=== PATIENT | female | born 1970 | race Caucasian/White ===

== ENCOUNTER 2016-05-16 17:00 | Emergency (ER) | payer OTHER ==
[~2016-05-16] VITALS: Ht 160 cm; Wt 65.8 kg
[~2016-05-16 17:00] MED LIST: ALBUTEROL2.5 MG/3 M INH/SOL; AUGMENTIN 875875 MG PO; AZITHROMYCIN250 M1 PO; FLOVENT1 PU1 INH; MEDROL4 M2 PO; OXYCODONE5 MG PO; PREDNISONE10 MG PO; PROAIR HFA0.09 MG/Ac INH; ROBITUSSIN W/CO10 ML PO; TESSALON PERLE100 M1 PO; VENTOLIN HFA18 GM INH; ZITHROMAX Z-PA250 M1 PO
--- NOTE | 2016-05-16 18:09 | ED INFLUENZA/URI COMPLAINT ---
History of Present Illness General Chief Complaint: General Adult Stated Complaint: FEVER,COUGH,BODY ACHES Source: patient Exam Limitations: no limitations Vital Signs & Intake/Output Vital Signs & Intake/Output Vital Signs Date Time Temp Pulse Resp B/P Pulse O2 O2 Flow FiO2 Ox Delivery Rate 05/16 1854 100.7 05/169 100.7 05/16 1743 100.7 88 20 144/86 100 Room Air Allergies Coded Allergies: MDX - Chocolate (Chocolate) (Mild, CONGESTION 08/24/13) MDX - Peanuts (Peanuts) (Mild, CONGESTION 08/24/13) MDX - Aspirin (NOSE BLEEDS 06/14/14) Reconcile Medications Albuterol Sulfate (Proair Hfa) 0.09 MG/Actuation BREE 2 PUFF INH Q4HR PRN WHEEZING Albuterol Sulfate 2.5 MG/3 ML VIAL.NEB 1 Vial INH/EVER Q4P PRN shortness of breath/wheezing Albuterol Sulfate (Ventolin Hfa) 18 GM HFA.AER.AD 2 PUF INH Q4-6 PRN PRN WHEEZING/SHORTNESS OF BREATH Azithromycin (Zithromax Z-Torres) 250 MG CAP 1 DP PO AD bronchitis 2 the first day followed by 1 for days 2-5 Azithromycin 250 MG TABLET 1 DP PO AD infection 2 the first day followed by 1 for days 2-5 Benzonatate (Tessalon Perle) 100 MG CAPSULE 1 CAP PO TID PRN COUGH Benzonatate (Tessalon Perle) 100 MG CAPSULE 1 CAP PO TID PRN COUGH Methylprednisolone. (Medrol) 4 MG TAB.DS.PK 1 DP PO AD breathing/sinuses Mometasone Furoate (Nasonex) 50 MCG SPRAY.PUMP 2 SPRAY NASB DAILY CONGESTION Oseltamivir Phosphate (Tamiflu) 75 MG CAPSULE 1 CAP PO BID INFLUENZA Robitussin AC (Guaifenesin-Codeine Syrup) 10 ML UDC 10 ML PO Q6 PRN cough Robitussin AC (Guaifenesin-Codeine Syrup) 200 MG-20 MG/10 ML LIQUID 10 ML PO TID PRN COUGH Triage Note: C/O BODY ACHES, HEADACHE. FEVER AND COUGH SINCE YESTERDAY. DENIES . Triage Nurses Notes Reviewed? yes Onset: Abrupt Duration: constant Timing: recent history Severity: severe Severity Numbers: 8 No Modifying Factors: none Modifying Factors: Improves With: rest. HPI: Patient is a 45-year-old female with past medical history of asthma who presents emergency with a 2 day history of acute onset of fever or shaky chills body aches back pain headache nasal congestion sinus pressure head congestion and productive white cough. Positive sick contacts at home. Denies any chest pain arm pain jaw pain leg swelling or rash. Denies any sore throat. (BOBBY WALTER) Past History Travel History Traveled to [place] past 21 day No Medical History Any Pertinent Medical History? see below for history Neurological: migraine EENT: NONE Cardiovascular: SVT Respiratory: asthma Gastrointestinal: ulcerative colitis Hepatic: NONE Renal: NONE Musculoskeletal: NONE Psychiatric: NONE Endocrine: NONE Blood Disorders: RAYNAUDS SYNDROMEN Cancer(s): NONE COOK PIE/Reproductive: NONE Surgical History Surgical History: non-contributory Psychosocial History What is your primary language [place] Tobacco Use: Never used ETOH Use: denies use Family History Hx Contributory? No (BOBBY WALTER) Review of Systems Review of Systems Constitutional: Reports: see HPI, chills. EENTM: Reports: see HPI. Respiratory: Reports: see HPI, cough. Cardiovascular: Reports: no symptoms. GI: Reports: no symptoms. Genitourinary: Reports: no symptoms. Musculoskeletal: Reports: no symptoms. Skin: Reports: no symptoms. Neurological/Psychological: Reports: see HPI, headache. Hematologic/Endocrine: Reports: no symptoms. Immunologic/Allergic: Reports: no symptoms. All Other Systems: Reviewed and Negative (BOBBY WALTER) Physical Exam Physical Exam General Appearance: mild distress Ears, Nose, Throat: moist mucous membrane, hearing grossly normal, Tympanic normal, pharynx normal, nasal congestion, nasal drainage Comments: HEENT: , extraocular motion intact, no nystagmus. Pupils equally round and reactive to light and accommodation. Nose is atraumatic. External auditory canal and Tympanic membranes clear. Pharynx normal. No swelling or edema. Nasal congested noted, no sinus pain Neck: Supple, no lymphadenopathy, normal range of motion without pain or tenderness Back: Nontender, no CVA tenderness. Cardiovascular: Regular rate and rhythms no murmurs rubs or gallops, normal JVP Respiratory: Chest nontender. No respiratory distress.breath sounds clear to auscultation bilaterally Abdomen: Soft, nontender nondistended, no appreciable organomegaly. Normal bowel sounds. No ascites Extremity: No edema, no calf tenderness to palpation, normal and equal pulses. Neuro: Alert oriented x3, motor sensory normal, Skin: No appreciable rash on exposed skin, skin is warm and dry. Psych: Mood and affect is normal, memory and judgment is normal. Core Measures Severe Sepsis Present: No Septic Shock Present: No (BOBBY WALTER) Progress Differential Diagnosis: influenza, meningitis, neutropenia, otitis, pneumonia, pharyngitis, sinusitis Plan of Care: Orders Procedure Date/time Status RAPID VIRAL INFLUENZA A 05/16 1800 Complete Patient was given 1 L of food resuscitation and positive influenza B. Discussed findings with patient and which she was able tolerate by mouth (BOBBY WALTER) Initial ED EKG: none (BOBBY WALTER) Departure Departure Disposition: HOME OR SELF CARE Condition: Stable Clinical Impression Primary Impression: Influenza B Referrals: ELVER DO MD (PCP/Family) Additional Instructions: DISCUSSED begin drinking plenty of water for hydration begin [id number] Tylenol for fevers Motrin for pain and headaches, [id number] Sudafed for congestion. Begin the prescription for Tessalon Perles and Robitussin with codeine for cough. Begin the prescription of Nasonex for nasal congestion and Tamiflu for your symptoms. If no better in 2 days follow-up with primary care doctor. If symptoms worsen return to emergency ROOM. Prescriptions are waiting at [facility] pharmacy. Departure Forms: Customer Survey General Discharge Information Prescriptions: Current Visit Scripts Benzonatate (Tessalon Perle) 1 CAP PO TID PRN COUGH #21 CAP Oseltamivir Phosphate (Tamiflu) 1 CAP PO BID #10 CAP Robitussin AC (Guaifenesin-Codeine Syrup) 10 ML PO TID PRN COUGH #100 ML Mometasone Furoate (Nasonex) 2 SPRAY NASB DAILY #1 INHAL (BOBBY WALTER) PA/FACT CHECKER Co-Sign Statement Statement: ED Attending supervision documentation- [] I saw and evaluated the patient. I have also reviewed all the pertinent lab results and diagnostic results. I agree with the findings and the plan of care as documented in the PA's/FACT CHECKER's documentation. [X] I have reviewed the ED Record and agree with the PA's/FACT CHECKER's documentation. [] Additions or exceptions (if any) to the PAs/FACT CHECKER's note and plan are summarized below: [] (AGUSTIN ARTIS,SANKET)
[2016-05-16] MEDS ORDERED: GUAIFENESIN-COD10 ML PO (19:15)
[2016-05-16] MEDS ORDERED: NASONEX17 GM NASB (19:15)
[2016-05-16] MEDS ORDERED: TAMIFLU75 M1 PO (19:15)
[2016-05-16] MEDS ORDERED: TESSALON PERLE100 M1 PO (19:15)
[2016-05-16 19:41] VITALS: BP 140/80
== END 2016-05-16 19:41 ==
LOC: ERH 17:00
DX: J10.1 Influenza due to other identified influenza virus with other respiratory manifestations (principal)
CPT/HCPCS: 87804; 87804-59

== ENCOUNTER 2016-06-09 12:27 | Emergency (ER) | payer OTHER ==
[~2016-06-09] VITALS: Ht 162.6 cm; Wt 68.0 kg
[~2016-06-09 12:27] MED LIST changes: +GUAIFENESIN-COD10 ML PO; +NASONEX17 GM NASB; +TAMIFLU75 M1 PO
[2016-06-09 14:06] LABS: ABSOLUTE BASOPHIL COUNT 0 /CUMM (0.0-0.2); ABSOLUTE EOSINOPHIL COUNT 0.2 /CUMM (0.0-0.7); ABSOLUTE LYMPH COUNT 1.4 /CUMM (1.2-3.4); ABSOLUTE MONOCYTE COUNT 0.9 /CUMM (0.10-0.60); BASOPHIL % 0.4 % (0.0-2.0); EOSINOPHIL % 3.3 % (0-5); GRANULOCYTE % 55.1 % (42.2-75.2); HEMATOCRIT 39.9 % (37-47); MEAN CORPUSCULAR HGB CONC 33.5 G/DL (33.0-37.0); MEAN CORPUSCULAR VOLUME 86.5 FL (81.0-99.0); PLATELET COUNT 232 /CUMM (130-400); RBC DISTRIBUTION WIDTH 13.7 % (11.5-14.5); RED BLOOD CELL CT 4.61 /CUMM (4.20-5.40); WHITE BLOOD CELL COUNT 5.4 /CUMM (4.8-10.8)
--- NOTE | 2016-06-09 14:07 | ED DYSPNEA/ASTHMA COMPLAINT ---
History of Present Illness General Chief Complaint: Upper Respiratory Sx/Fever Stated Complaint: COUGH Source: patient Exam Limitations: no limitations Vital Signs & Intake/Output Vital Signs & Intake/Output Vital Signs Date Time Temp Pulse Resp B/P Pulse O2 O2 Flow FiO2 Ox Delivery Rate 06/09 1711 98.0 93 20 142/80 99 Room Air 06/09 1457 95 06/09 1450 99.0 96 20 132/69 96 Room Air 06/09 1415 98 06/09 1233 98.6 94 16 153/82 100 Room Air Allergies Coded Allergies: MDX - Chocolate (Chocolate) (Mild, CONGESTION 08/24/13) peanut (Mild, CONGESTION 06/09/16) aspirin (NOSE BLEEDS 06/09/16) Triage Note: PT TO ED FOR PERSISTENT DRY COUGH X 2 WEEKS. ALSO NEEDS REFILL OF ALBUTEROL. Triage Nurses Notes Reviewed? yes HPI: This patient is a 45-year-old female with a past medical history including SVT and ulcerative colitis who presented to the emergency department today for evaluation of cough 2 weeks. The patient reported that the cough is dry and nonproductive. She denied any hemoptysis. The patient reported associated chest tightness, but denied any chest pain. She reported that she was diagnosed with the flu several weeks ago and after taking the medication began to feel better after approximately 5 days. The patient denied any abdominal pain, nausea, vomiting, fevers, chills, back pain, or any other associated symptoms. She is also requesting a refill of her albuterol inhaler. (GERARDO COSTA,BARRERA) Reconcile Medications Albuterol Sulfate 2.5 MG/3 ML VIAL.NEB 1 Vial INH/EVER Q4P PRN shortness of breath/wheezing Albuterol Sulfate (Ventolin Hfa) 18 GM HFA.AER.AD 2 PUF INH Q4-6 PRN PRN WHEEZING/SHORTNESS OF BREATH Albuterol Sulfate (Proair Hfa) 90 MCG HFA.AER.AD 2 PUF INH Q4-6 PRN PRN asthma Azithromycin 250 MG TABLET 1 DP PO AD pneumonia 2 the first day followed by 1 for days 2-5 Benzonatate (Tessalon Perle) 100 MG CAPSULE 1 CAP PO TID PRN COUGH Benzonatate (Tessalon Perle) 100 MG CAPSULE 1 CAP PO TID PRN cough (AGUSTIN ARTIS,[facility]) Past History Travel History Traveled to [place] past 21 day No Medical History Any Pertinent Medical History? 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 No (BARRERA CARRILLO PA-C) Review of Systems Review of Systems Constitutional: Reports: no symptoms. EENTM: Reports: no symptoms. Respiratory: Reports: see HPI. Cardiovascular: Reports: no symptoms. GI: Reports: no symptoms. Genitourinary: Reports: no symptoms. Musculoskeletal: Reports: no symptoms. Skin: Reports: no symptoms. Neurological/Psychological: Reports: no symptoms. All Other Systems: Reviewed and Negative (BARRERA CARRILLO PA-C) Physical Exam Physical Exam Respiratory: chest non-tender, quiet respiration, mild respiratory distress. No wheezes, rales, or rhonchi. No stridor Comments: Well-developed well-nourished person in no acute distress HEENT: Normal EENT exam, moist mucous membranes Pharynx normal. No swelling or edema. Neck: Supple, no lymphadenopathy Back: Normal gait Cardiovascular: Regular rate and rhythm with no murmurs, rubs, or gallops. No JVD or carotid bruits Extremity: No edema, normal and equal pulses. Neuro: Alert oriented x3, motor sensory normal, cranial nerves II through XII grossly intact. Skin: No appreciable rash on exposed skin, skin is warm and dry. Psych: Mood and affect is normal Core Measures ACS in differential dx? Yes Severe Sepsis Present: No Septic Shock Present: No (BARRERA CARRILLO PA-C) Progress Differential Diagnosis: asthma, AMI, bronchitis, costochondritis, CHF, COPD, musculoskeletal pain, pericarditis, pulmonary embolism, pneumonia, unstable angina, dvt Plan of Care: Orders Procedure Date/time Status AEROSOL (GEN) 06/09 1418 Complete TROPONIN LEVEL 06/09 1332 Complete D-DIMER 06/09 1332 Complete COMPREHENSIVE METABOLIC PANEL 06/09 1332 Complete CBC WITHOUT DIFFERENTIAL 06/09 1332 Complete EKG 06/09 1332 Active Current Medications Sig/Jace Start time Last Medication Dose Stop Time Status Admin Guaifenesin/Codeine 10 ML ONCE ONE 06/09 1645 CAN Phosphate 06/09 1646 (Robitussin AC) Laboratory Tests 06/09/16 1356: Anion Gap 8, Estimated GFR > 60, BUN/Creatinine Ratio 15.0, Glucose 91, Calcium 9.0, Total Bilirubin 0.5, AST 21, ALT 26, Alkaline Phosphatase 76, Troponin I < 0.01, Total Protein 6.9, Albumin 3.9, Globulin 3.0, Albumin/Globulin Ratio 1.3, D-Dimer 244 H, CBC w Diff NO MAN DIFF REQ, RBC 4.61, MCV 86.5, MCH 29.0, RDW 13.7, MPV 8.0, Gran % 55.1, Lymphocytes % 24.9, Monocytes % 16.3 H, Eosinophils % 3.3, Basophils % 0.4, Absolute Granulocytes 3.0, Absolute Lymphocytes 1.4, Absolute Monocytes 0.9 H, Absolute Eosinophils 0.2, Absolute Basophils 0, PUBS MCHC 33.5 Diagnostic Imaging: Viewed by Me: Radiology Read, CT Scan, Ultrasound. Discussed w/RAD: Radiology Read, CT Scan, Ultrasound. Radiology Impression: PATIENT: KAYLEE EWING PRESENT AGE: 45 PATIENT ACCOUNT NO: [id number] : 68 LOCATION: [facility] ORDERING PHYSICIAN: BARRERA CARRILLO PA-C SERVICE DATE: 06/09/16 EXAM TYPE: CAT - CTA CHEST-PULMONARY EMBOLISM EXAMINATION: CT ANGIOGRAM CHEST WITHOUT AND WITH CONTRAST (CT PULMONARY ANGIOGRAM FOR PE) CLINICAL INFORMATION: Cough. Chest tightness. Assess for pulmonary embolism. COMPARISON: CT angiogram of the chest 06/13/2014. TECHNIQUE: Prior to contrast administration, noncontrast localization images were obtained. Subsequently, multidetector volumetric imaging was performed from the thoracic inlet to below the diaphragms following the administration of 95 mL Optiray 350 intravenous contrast. No contrast reaction reported Sagittal, coronal, and MIP oblique sagittal reformatted images were obtained on the CT workstation, uploaded to PACS, and reviewed. TOTAL EXAM DLP: 548 mGy-cm FINDINGS: QUALITY OF STUDY/CONTRAST BOLUS: Satisfactory. PULMONARY ARTERIES: No central or segmental pulmonary emboli. THORACIC AORTA: No aneurysm or dissection. LUNG: There is patchy multifocal opacification within the right lower lobe, most suspicious for pneumonia. No other parenchymal consolidation. PLEURA: No pleural effusion or pneumothorax. MEDIASTINUM: Normal heart size. No pericardial effusion. There is a mildly prominent right hilar lymph node measuring 1.1 cm in diameter. No other mediastinal lymphadenopathy. No evidence of septal bowing or right heart strain. CHEST WALL/AXILLA: No axillary or internal mammary lymphadenopathy. OSSEOUS STRUCTURES: No acute or suspicious osseous abnormality. UPPER ABDOMEN: There is a 1.4 cm hypodense lesion within Couinaud's segment 7 which measures 5 Hounsfield units, most consistent with a cyst. No acute intra-abdominal pathology demonstrated. No reflux of contrast into the hepatic veins to suggest elevated right heart pressures. IMPRESSION: 1. No evidence of pulmonary embolism. 2. Patchy right lower lobe consolidation is most suspicious for pneumonia. 3. Nonspecific 1.1 cm right hilar lymph node may be reactive in nature. VTE: Negative DICTATED BY: NELSY MARIE MD DATE/TIME DICTATED:06/09/161555 WARHEAD MAINTENANCE SPECIALIST:MARY DATE/TIME TRANSCRIBED:06/09/161555 CONFIDENTIAL, DO NOT COPY WITHOUT APPROPRIATE AUTHORIZATION. <Electronically signed in Other Vendor System> SIGNED BY: NELSY MARIE MD 06/09/16 1620, PATIENT: KAYLEE EWING PRESENT AGE: 45 PATIENT ACCOUNT NO: [id number] : LOCATION: [facility] ORDERING PHYSICIAN: BARRERA CARRILLO PA-C SERVICE DATE: 06/09/16 EXAM TYPE: US - US-EXT BILAT VENOUS DOPPLER EXAMINATION: US TRIPLEX LOWER EXTREMITY, BILATERAL CLINICAL INFORMATION: Bilateral lower extremity edema and tenderness. COMPARISON: None. TECHNIQUE: Color-flow triplex imaging with spectral analysis and compression Doppler were performed on the bilateral lower extremities. FINDINGS: Respiratory variation, normal compression and augmented flow are noted throughout the bilateral lower extremities. The visualized common femoral, femoral, profunda femoral vein, popliteal and midcalf peroneal and posterior tibial venous segments demonstrate no evidence of deep venous thrombosis. There are no Liu's cysts. IMPRESSION: Normal triplex scan without evidence of deep venous thrombosis involving the bilateral lower extremities. DICTATED BY: ADRIANA ABDULLAHI MD DATE/TIME DICTATED:06/09/161615 WARHEAD MAINTENANCE SPECIALIST:MARY DATE/TIME TRANSCRIBED:06/09/161615 CONFIDENTIAL, DO NOT COPY WITHOUT APPROPRIATE AUTHORIZATION. <Electronically signed in Other Vendor System> SIGNED BY: ADRIANA ABDULLAHI MD 06/09/16 1652 CXR Impression: PATIENT: KAYLEE EWING PRESENT AGE: 45 PATIENT ACCOUNT NO: [id number] : 66 LOCATION: [facility] ORDERING PHYSICIAN: BARRERA CARRILLO PA-C SERVICE DATE: 06/09/16 EXAM TYPE: RAD - XRY-CHEST XRAY, PA AND LATERAL EXAMINATION: XR CHEST 2 VIEWS CLINICAL INFORMATION: Chest tightness and cough. COMPARISON: Prior chest radiographs, most recently 09/22/2015. TECHNIQUE: Frontal and lateral views of the chest were obtained. FINDINGS: The heart, great vessels, pulmonary vasculature and mediastinum are normal. The lungs show no focal infiltrate, effusion or pneumothorax. There is no acute osseous abnormality. IMPRESSION: No active cardiopulmonary disease. DICTATED BY: DANA GLOVER MD DATE/TIME DICTATED:1424 WARHEAD MAINTENANCE SPECIALIST:MARY DATE/TIME TRANSCRIBED:06/09/161424 CONFIDENTIAL, DO NOT COPY WITHOUT APPROPRIATE AUTHORIZATION. <Electronically signed in Other Vendor System> SIGNED BY: DANA GLOVER MD 06/09/16 1430 Initial ED EKG: normal intervals, normal sinus rhythm, no ST T wave changes, 84 bpm (GERARDO COSTA,BARRERA) Departure Departure Disposition: HOME OR SELF CARE Condition: Stable Clinical Impression Primary Impression: Pneumonia Referrals: ELVER DO MD (PCP/Family) Additional Instructions: Please take antibiotic as prescribed and for its full duration. Use Tessalon Perles as prescribed for cough. Rest and be sure to stay hydrated. Please make a follow-up appointment with your primary care physician. Return for any worsening symptoms or concerns. Departure Forms: Customer Survey General Discharge Information Prescriptions: Current Visit Scripts Azithromycin 1 DP PO AD #6 TAB 2 the first day followed by 1 for days 2-5 Benzonatate (Tessalon Perle) 1 CAP PO TID PRN cough #30 CAP Albuterol Sulfate (Proair Hfa) 2 PUF INH Q4-6 PRN PRN asthma #1 INHAL Ref 1 (GERARDO COSTA,BARRERA) PA/SPRAY PAINTING MACHINE OPERATOR Co-Sign Statement Statement: ED Attending supervision documentation- [] I saw and evaluated the patient. I have also reviewed all the pertinent lab results and diagnostic results. I agree with the findings and the plan of care as documented in the PA's/SPRAY PAINTING MACHINE OPERATOR's documentation. [X] I have reviewed the ED Record and agree with the PA's/SPRAY PAINTING MACHINE OPERATOR's documentation. [] Additions or exceptions (if any) to the PAs/SPRAY PAINTING MACHINE OPERATOR's note and plan are summarized below: [] (AGUSTIN ARTIS,SANKET) Critical Care Note Critical Care Note Critical Care Time: non-applicable (GERARDO COSTA,BARRERA)
--- NOTE | 2016-06-09 14:30 | RADIOLOGY REPORT ---
EXAMINATION: XR CHEST 2 VIEWS CLINICAL INFORMATION: Chest tightness and cough. COMPARISON: Prior chest radiographs, most recently 09/22/2015. TECHNIQUE: Frontal and lateral views of the chest were obtained. FINDINGS: The heart, great vessels, pulmonary vasculature and mediastinum are normal. The lungs show no focal infiltrate, effusion or pneumothorax. There is no acute osseous abnormality. IMPRESSION: No active cardiopulmonary disease.
--- NOTE | 2016-06-09 16:20 | CT SCAN REPORT ---
EXAMINATION: CT ANGIOGRAM CHEST WITHOUT AND WITH CONTRAST (CT PULMONARY ANGIOGRAM FOR PE) CLINICAL INFORMATION: Cough. Chest tightness. Assess for pulmonary embolism. COMPARISON: CT angiogram of the chest 06/13/2014. TECHNIQUE: Prior to contrast administration, noncontrast localization images were obtained. Subsequently, multidetector volumetric imaging was performed from the thoracic inlet to below the diaphragms following the administration of 95 mL Optiray 350 intravenous contrast. No contrast reaction reported Sagittal, coronal, and MIP oblique sagittal reformatted images were obtained on the CT workstation, uploaded to PACS, and reviewed. TOTAL EXAM DLP: 548 mGy-cm FINDINGS: QUALITY OF STUDY/CONTRAST BOLUS: Satisfactory. PULMONARY ARTERIES: No central or segmental pulmonary emboli. THORACIC AORTA: No aneurysm or dissection. LUNG: There is patchy multifocal opacification within the right lower lobe, most suspicious for pneumonia. No other parenchymal consolidation. PLEURA: No pleural effusion or pneumothorax. MEDIASTINUM: Normal heart size. No pericardial effusion. There is a mildly prominent right hilar lymph node measuring 1.1 cm in diameter. No other mediastinal lymphadenopathy. No evidence of septal bowing or right heart strain. CHEST WALL/AXILLA: No axillary or internal mammary lymphadenopathy. OSSEOUS STRUCTURES: No acute or suspicious osseous abnormality. UPPER ABDOMEN: There is a 1.4 cm hypodense lesion within Couinaud's segment 7 which measures 5 Hounsfield units, most consistent with a cyst. No acute intra-abdominal pathology demonstrated. No reflux of contrast into the hepatic veins to suggest elevated right heart pressures. IMPRESSION: 1. No evidence of pulmonary embolism. 2. Patchy right lower lobe consolidation is most suspicious for pneumonia. 3. Nonspecific 1.1 cm right hilar lymph node may be reactive in nature. VTE: Negative
--- NOTE | 2016-06-09 16:52 | ULTRASOUND REPORT ---
EXAMINATION: US TRIPLEX LOWER EXTREMITY, BILATERAL CLINICAL INFORMATION: Bilateral lower extremity edema and tenderness. COMPARISON: None. TECHNIQUE: Color-flow triplex imaging with spectral analysis and compression Doppler were performed on the bilateral lower extremities. FINDINGS: Respiratory variation, normal compression and augmented flow are noted throughout the bilateral lower extremities. The visualized common femoral, femoral, profunda femoral vein, popliteal and midcalf peroneal and posterior tibial venous segments demonstrate no evidence of deep venous thrombosis. There are no Liu's cysts. IMPRESSION: Normal triplex scan without evidence of deep venous thrombosis involving the bilateral lower extremities.
[2016-06-09] MEDS ORDERED: TESSALON PERLE100 M1 PO (16:59)
[2016-06-09] MEDS ORDERED: AZITHROMYCIN250 M1 PO (16:59)
[2016-06-09 17:11] VITALS: BP 142/80
[2016-06-09] MEDS ORDERED: PROAIR HFA8.5 GM INH (17:13)
== END 2016-06-09 17:08 ==
LOC: ERH 12:27
PROVIDERS: Physician Assistant
DX: J18.9 Pneumonia, unspecified organism (principal); F17.210 Nicotine dependence, cigarettes, uncomplicated
CPT/HCPCS: 1263; 93005; 93010; 93970

== ENCOUNTER → 2017-08-28 | Day surgery (SDC) | payer OTHER ==
--- NOTE | 2017-08-27 18:41 | History & Physical Pre-Op ---
General Information and HPI History of Present Illness: This patient is a 46-year-old 3 para 3 with chronic heavy menses who desires definitive surgical treatment. She has been treated previously with hormonal agents however this is insufficient. She presents today for NovaSure ablation. Of note transvaginal ultrasounds shows possible endometrial polyp. Allergies/Medications Allergies: Coded Allergies: peanut (Mild, CONGESTION 06/09/16) chocolate flavor (CONGESTION 08/24/17) aspirin (NOSE BLEEDS 08/27/17) Home Med list Albuterol Sulfate 2.5 MG/3 ML VIAL.NEB 1 Vial INH/EVER Q4P PRN shortness of breath/wheezing Albuterol Sulfate (Ventolin Hfa) 18 GM HFA.AER.AD 2 PUF INH Q4-6 PRN PRN WHEEZING/SHORTNESS OF BREATH Past History Medical History Neurological: migraine EENT: NONE Cardiovascular: SVT Respiratory: asthma Gastrointestinal: ulcerative colitis Hepatic: NONE Renal: NONE Musculoskeletal: NONE Psychiatric: NONE Endocrine: NONE Blood Disorders: RAYNAUDS SYNDROMEN Cancer(s): NONE 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 EENTM: Reports: no symptoms. Cardiovascular: Reports: no symptoms. Respiratory: Reports: no symptoms. GI: Reports: no symptoms. Genitourinary: Reports: see HPI. Musculoskeletal: Reports: no symptoms. Skin: Reports: no symptoms. Neurological/Psychological: Reports: no symptoms. Hematologic/Endocrine: Reports: no symptoms. Immunologic/Allergic: Reports: no symptoms. All Other Systems: Reviewed and Negative Exam & Diagnostic Data Last 24 Hrs of Vital Signs/I&O Intake & Output 08/27 1600 08/27 0800 08/27 0000 Intake Total Output Total Balance Patient 150 lb Weight Physical Exam: HEENT: Normocephalic atraumatic Chest: Clear to auscultation bilaterally Cardiovascular: Normal S1, S2 Abdomen: Soft nontender no masses Pelvic: Deferred OR Extremities: No clubbing cyanosis or edema Neurologic: Nonfocal Assessment/Plan Assessment/Plan: Menorrhagia Plan: D&C hysteroscopy and NovaSure ablation As Ranked By This Provider Problem List: 1. Menorrhagia
[~2017-08-28] VITALS: Ht 162.6 cm; Wt 68.0 kg
[~2017-08-28] MED LIST changes: +PROAIR HFA8.5 GM INH
--- NOTE | 2017-08-28 12:44 | Operative Report ---
Operative/Inv Procedure Report Surgery Date: 08/28/17 Name of Procedure: D&C hysteroscopy NovaSure ablation Pre-Operative Diagnosis: Menorrhagia, endometrial polyp Post-Operative Diagnosis: Same Estimated Blood Loss: scant Surgeon/Green Coffee Blender: Sreedhar Tubbs MD Anesthesia: laryngeal mask airway Operative/Procedure Note Note: The patient is brought to the operating room placed on the OR table in the dorsal supine position. After adequate anesthesia she was successfully intubated with an LMA. She was repositioned in modified dorsal lithotomy. She was prepped and draped in usual sterile fashion. Examination under anesthesia revealed midline uterus approximately 12 weeks in size. A weighted speculum was inserted into the vagina with help of a [place] retractor single-tooth tenaculum was attached to the anterior lip of the cervix. Checking with 1% lidocaine with epinephrine 2-1/2 mL in each quadrant. An endocervical curet was performed revealing a small amount of tissue. The uterus was then sounded to 10 cm. The cervix was serially dilated to accommodate the hysteroscope. The hysteroscope was placed into the uterus as the saline infusion was begun. There was shaggy endometrium noted and an endometrial polyp. The hysteroscope was removed and the cervix was further dilated and sharp curettage followed removing a large amount of material including the endometrial polyp. At this point the NovaSure device was primed and placed into a 6 cm uterus the width was noted to be 5-1/2 cm in size. Her ablation begun at 144 W power and continued for approximately 90 seconds after the cavity assessment was successful. At the end of the procedure the instruments removed intact hemostasis was verified. The patient was then awakened and sent to recovery in good condition. All needle, sponge, and inspected counts were correct at the end of the procedure 2.
== END ==
LOC: STS 03:20
DX: N84.0 Polyp of corpus uteri (principal); N92.0 Excessive and frequent menstruation with regular cycle; J45.909 Unspecified asthma, uncomplicated; I73.00 Raynaud's syndrome without gangrene; I47.1 Supraventricular tachycardia; L40.50 Arthropathic psoriasis, unspecified
CPT/HCPCS: 81025; 93005; 93010; J0131; J1100; J2250; J2405